=== PATIENT | male | born 1990 | race Caucasian/White ===

== ENCOUNTER 2019-12-12 11:33 | Emergency (ER) | payer OTHER, SELFPAY ==
[2019-12-12 11:46] VITALS: BP 108/66; PULSE 72; RESP 18; TEMP 36.7; O2SAT 99
--- NOTE | 2019-12-12 12:05 | ED.URI ---
HPI - URI/Sore Throat General Chief Complaint: Upper Respiratory Infection Stated Complaint: body aches/warren/chillls/cough Time Seen by Provider: 12/12/19 12:05 Source: patient and RN notes reviewed History of Present Illness HPI Narrative: Patient is a 29-year-old male that presents the urgent care with complaints of body aches, headache, chills, cough. Patient states that his girlfriend was diagnosed with influenza last Monday. Patient states his symptoms started on Monday and he has been using ibuprofen. States that he has had chills and sweats but denies known fever. No other acute complaints. No acute distress noted. Patient read the plan of care. Related Data Home Medications Medication Instructions Recorded Confirmed No Home Medications 12/12/19 12/12/19 Allergies Allergy/AdvReac Type Severity Reaction Status Date / Time No Known Allergies Allergy Unverified 12/12/19 11:45 Review of Systems Review of Systems: Narrative: CONSTITUTIONAL: reports of chills, sweats and fatigue EYES: Denies visual changes, redness, or discharge. ENT: Denies rhinorrhea, congestion, sore throat, or otalgia. CARDIOVASCULAR: Denies chest pain, palpitations, or edema. RESPIRATORY: Reports of nonproductive cough without dyspnea or wheezing GASTROINTESTINAL: Denies abdominal pain, nausea, vomiting, or diarrhea. GENITOURINARY: Denies dysuria or hematuria. SKIN: Denies rash or itching. MUSCULOSKELETAL: Denies back pain, joint pain; reports of body aches NEUROLOGIC: D reports of intermittent headaches All other systems reviewed are negative, except as documented in HPI. PMFSH Social History Social History Smoking status: Never smoker Alcohol intake: never Comments At the time of my signature, I reviewed and agree with the nursing past medical, surgical, social, and family history. There is no relevant family history pertinent to the patient complaint. Exam Narrative: Exam Narrative: GENERAL: This is a well-nourished, well-developed patient, appears slightly fatigued HEAD: normocephalic, atraumatic. EYES: PERRL. Sclera clear/white. Vision is grossly intact. EARS: External ears normal, auditory canals clear and without drainage, TMs normal without perforation. Hearing grossly intact. NOSE: External nose normal with no obvious nasal discharge, nares without redness, clear rhinorrhea. THROAT: Mucous membranes moist, posterior pharynx clear. Moderate postnasal drainage NECK: Neck supple CARDIOVASCULAR: Regular rate and rhythm without murmurs, gallops, or rubs. RESPIRATORY: Clear to auscultation. Breath sounds equal bilaterally. No wheezes, rales, or rhonchi. SKIN: warm, intact with no suspicious lesions or rash, good texture and turgor. NEURO: awake, alert, and oriented to person, place and time. There were no obvious focal neurologic abnormalities. EXTREMITIES: No clubbing, cyanosis, or edema. Course Vital Signs Vital signs: Vital Signs Temperature 98.1 F 12/12/19 11:46 Pulse Rate 72 12/12/19 11:46 Respiratory Rate 18 12/12/19 11:46 Blood Pressure 108/66 12/12/19 11:46 Pulse Oximetry 99 12/12/19 11:46 Temperature 98.1 F 12/12/19 11:46 Pulse Rate 72 12/12/19 11:46 Respiratory Rate 18 12/12/19 11:46 Blood Pressure 108/66 12/12/19 11:46 Pulse Oximetry 99 12/12/19 11:46 Reviewed MDM - URI/Sore Throat MDM Narrative Medical decision making narrative: Reviewed lab results with the patient. He is aware that his flu swab was negative. Advised the patient to treat symptoms with [id number] medication such as Claritin and Flonase for postnasal drainage and symptom relief. Use Tylenol/ibuprofen as needed for headache, body aches, fever. Increase fluids and rest. Use humidifier at night. Follow-up with PCP within 2 to 5 days or for worsening symptoms or failure to improve. Differential Diagnosis Differential diagnosis: Likely upper respir
== END 2019-12-12 12:35 | disposition home or self-care (01) ==
PROVIDERS: Emergency Provider Nurse Practitioner Family; PCP Emergency Medicine
DX: B34.9 Viral infection, unspecified (principal)
CPT/HCPCS: 87804; 99203; G0463

== ENCOUNTER 2023-06-20 12:20 | Emergency (ER) | payer OTHER, SELFPAY ==
[2023-06-20 12:32] VITALS: BP 119/76; PULSE 73; RESP 16; TEMP 36.6; O2SAT 100
--- NOTE | 2023-06-20 12:39 | ED.URI ---
HPI - URI/Sore Throat General Chief Complaint: Upper Respiratory Infection Stated Complaint: Cold symptoms Source: patient and RN notes reviewed History of Present Illness HPI Narrative: 32 yo M presents to urgent care with complaints of congestion, VIRAMONTES, cough, and sore throat since Monday. Pt states he has SOB and chest pain when he coughs. States he had a fever on Monday. Denies any V/D, ear pain, or abdominal pain. Pt has been taking Nyquil at home. Related Data Allergies Allergy/AdvReac Type Severity Reaction Status Date / Time No Known Allergies Allergy Unverified 06/20/23 12:32 Review of Systems Review of Systems: Pertinent positives and pertinent negatives per HPI. [facility]LY [facility] Family History Family History Mother Patient's mother is in good health Father Patient's father is in good health Social History Social History Smoking status: Never smoker Alcohol intake: never Comments At the time of my signature, I reviewed and agree with the nursing past medical, surgical, social, and family history. There is no relevant family history pertinent to the patient complaint. Exam Narrative: GENERAL: This is a well-nourished, well-developed patient, in no apparent distress. HEAD: normocephalic, atraumatic. EYES: Sclera clear/white. Vision is grossly intact. EARS: External ears normal, auditory canals clear and without drainage, TMs normal without perforation. Hearing grossly intact. NOSE: External nose normal with no obvious nasal discharge, nares without redness, no rhinorrhea. THROAT: Mucous membranes moist, posterior pharynx erythremic with postnasal drip . NECK: Neck supple, non-tender without lymphadenopathy, masses or thyromegaly. CARDIOVASCULAR: Regular rate and rhythm without murmurs, gallops, or rubs. RESPIRATORY: Clear to auscultation. Breath sounds equal bilaterally. No wheezes, rales, or rhonchi. SKIN: warm, intact with no suspicious lesions or rash, good texture and turgor. NEURO: awake, alert, and oriented to person, place and time. There were no obvious focal neurologic abnormalities. BACK: Nontender without deformity or crepitus. No flank tenderness. Course Course Level of Care: Express Care Visit Vital Signs Vital signs: Vital Signs Temperature 97.9 F 06/20/23 12:32 Pulse Rate 73 06/20/23 12:32 Respiratory Rate 16 06/20/23 12:32 Blood Pressure 119/76 06/20/23 12:32 Pulse Oximetry 100 06/20/23 12:32 Temperature 97.9 F 06/20/23 12:32 Pulse Rate 73 06/20/23 12:32 Respiratory Rate 16 06/20/23 12:32 Blood Pressure 119/76 06/20/23 12:32 Pulse Oximetry 100 06/20/23 12:32 reviewed MDM - URI/Sore Throat MDM Narrative Medical decision making narrative: After 24 hours on antibiotics throw tooth brush away and start using a new one. Increase your Vitamin C. Do not share drinks. Take Motrin alternating with Tylenol for pain and/or fever alternating every 4 hours. Increase fluids, avoid caffeine. Take a probiotic daily or eat a low sugar yogurt while taking the antibiotic. Follow up with Primary provider if not getting better this week Differential Diagnosis Differential diagnosis: Likely upper respiratory infection, viral infection and pharyngitis Lab Data Attestation: I reviewed the patient's lab results. Labs: Strep Screen Positive Group A Strep *(Reference Range: Negative)* Critical Care Time Critical Care Time Critical Care Time: No Discharge Plan Discharge Clinical Impression: Pharyngitis Qualifiers: Pharyngitis/tonsillitis etiology: streptococcus Qualified Code(s): J02.0 - Streptococcal pharyngitis Patient Disposition: Home, Self-Care Condition: Stable Instructions: Antibiotic Form, Strep Throat (DC) Additional Instructions: After 24 hours on an
== END 2023-06-20 12:59 | disposition home or self-care (01) ==
PROVIDERS: Emergency Provider Nurse Practitioner Family; PCP Emergency Medicine
DX: J02.0 Streptococcal pharyngitis (principal)
CPT/HCPCS: 87880; 99203; G0463

== ENCOUNTER 2024-11-19 14:50 | Emergency (ER) | payer OTHER, SELFPAY ==
[2024-11-19 15:29] VITALS: BP 122/77; PULSE 73; RESP 16; TEMP 36.6; O2SAT 100
--- NOTE | 2024-11-19 15:47 | ED.LOWEXIN ---
HPI - Extremity Injury (Lower) General Chief Complaint: Extremity Injury, Lower Stated Complaint: INFECTED INGROWN TOENAIL Time Seen by Provider: 11/19/24 16:00 Source: patient Mode of arrival: ambulatory Limitations: no limitations History of Present Illness HPI Narrative: Bob is a 33-year-old male patient presenting to the clinic today with complaints of possible left infected ingrown toenail. He reports he stubbed his toe a few days ago and his toe became red and swollen with some yellow discharge. Has been doing Epson salt soaks. No known fever or chills. Related Data Allergies Allergy/AdvReac Type Severity Reaction Status Date / Time No Known Allergies Allergy Unverified 11/19/24 15:29 Review of Systems Review of Systems: Pertinent positives per HPI. Patient denies any fever, chills, rash, headache, visual changes, dizziness, cough, runny nose, sore throat, shortness of breath, chest pain, palpitations, nausea, vomiting, diarrhea, constipation, abdominal pain, or any urinary issues. [facility] Family History Family History Mother Patient's mother is in good health Father Patient's father is in good health Social History Social History Smoking status: Never smoker Alcohol intake: never Comments At the time of my signature, I reviewed and agree with the nursing past medical, surgical, social, and family history. There is no relevant family history pertinent to the patient complaint. Exam Narrative: General: Well-developed, well nourished, in no apparent distress Head: Normocephalic, atraumatic. Cardio: Regular rate and rhythm, s1 and s2 normal, no murmur appreciated. Resp: Clear to auscultation bilaterally, no rhonchi, rales, wheezing or rubs. Integumentary: [place], warm, and dry, ingrown toenail with infection to the right medial great toe-redness and swelling with yellow drainage Course Course Emergency Course: Portions of this record may have been created with voice recognition software. Level of Care: Express Care Visit Vital Signs Vital signs: Vital Signs Temperature 36.6 C 11/19/24 15:29 Pulse Rate 73 11/19/24 15:29 Respiratory Rate 16 11/19/24 15:29 Blood Pressure 122/77 11/19/24 15:29 Pulse Oximetry 100 11/19/24 15:29 Temperature 36.6 C 11/19/24 15:29 Pulse Rate 73 11/19/24 15:29 Respiratory Rate 16 11/19/24 15:29 Blood Pressure 122/77 11/19/24 15:29 Pulse Oximetry 100 11/19/24 15:29 Vital signs reviewed MDM - Extremity Injury (Lower) MDM Narrative Medical decision making narrative: At the time of visit patient is resting comfortably on the exam table. Patient appears to be nontoxic. Plan: I suspect patient has infected ingrown toenail. Prescription for Keflex and mupirocin cream was sent to the pharmacy. Recommend patient see his activated sludge attendant in 3-5 days for ingrown toenail removal. Supportive measures were discussed with the patient and they voiced understanding discharge instructions and agrees to treatment plan. Return precautions reviewed Differential Diagnosis Differential diagnosis: Likely other (Infected ingrown toenail, toe fracture, stubbed toe) Discharge Plan Discharge Clinical Impression: Ingrowing toenail with infection Patient Disposition: Home, Self-Care Condition: Stable Instructions: Antibiotic Form, Ingrown Nail (ED) Additional Instructions: Increase fluids and stay well hydrated Complete Epsom salt soaks 3-4 times per day Apply mupirocin cream to the affected area Take Keflex as prescribed Follow-up with activated sludge attendant in 5-7 days Patient Language: Romansh Prescriptions: New mupirocin [Centany] 2 % ointment 1 applic topical BID 7 Days Qty: 15 0RF cephalexin 500 mg capsule 500 mg PO Q8H 7 Days Qty: 21 0RF Follow-up/Referrals: Mikey Brooks MD [Primary Care Provider] - Time of Disposition: 15:49 Quality NIHSS Nursing Documentation ED NIHSS nursing documentation: reviewed/agree
== END 2024-11-19 16:00 | disposition home or self-care (01) ==
PROVIDERS: Emergency Provider Nurse Practitioner Family; PCP Emergency Medicine
DX: L60.0 Ingrowing nail (principal); L03.031 Cellulitis of right toe
CPT/HCPCS: 99213; G0463

== ENCOUNTER 2024-12-24 17:42 | Emergency (ER) | payer OTHER, SELFPAY ==
--- NOTE | 2024-12-24 17:47 | ED.URI ---
HPI - URI/Sore Throat General Chief Complaint: Upper Respiratory Infection Stated Complaint: flu like symptoms Time Seen by Provider: 12/24/24 17:47 Source: patient Mode of arrival: ambulatory Limitations: no limitations History of Present Illness HPI Narrative: Bob is a 34 year old male patient presenting to the clinic today with c/o nausea, vomiting, diarrhea, headache, dizziness, body aches, chills, and feeling fevers since last night. He reports he has had numerous episodes of vomiting and diarrhea. States he feels dizzy has been trying to drink Gatorade, IV body armor, and water. MD elicited complaint: other (Nausea, vomiting, diarrhea, body aches, chills, fever, headache) Related Data Allergies Allergy/AdvReac Type Severity Reaction Status Date / Time No Known Allergies Allergy Verified 12/24/24 17:56 Review of Systems Review of Systems: Pertinent positives per HPI. Patient denies any fever, chills, rash, headache, visual changes, dizziness, cough, shortness of breath, chest pain, palpitations, nausea, vomiting, diarrhea, constipation, abdominal pain, or any urinary issues. [facility] Family History Family History Mother Patient's mother is in good health Father Patient's father is in good health Social History Social History Smoking status: Never smoker Alcohol intake: never Comments At the time of my signature, I reviewed and agree with the nursing past medical, surgical, social, and family history. There is no relevant family history pertinent to the patient complaint. Exam Narrative: General: Well-developed, well nourished, in no apparent distress Head: Normocephalic, atraumatic Eyes: Pupils equally round and reactive to light bilaterally, EOM intact, sclera and conjunctive clear, no discharge, lids normal Ears: TMs intact and clear, ear canals clear, no drainage, grossly hearing normal. Nose: Nares patent, no discharge, no inflammation, no sinus tenderness. Mouth: Oral pharynx without lesions or masses, good dentition, MMM. Neck: Supple, trachea midline, no enlargement of anterior or posterior cervical nodes, no thyroid masses or goiter palpable. Cardio: Regular rate and rhythm, s1 and s2 normal, no murmur appreciated. Resp: Clear to auscultation bilaterally, no rhonchi, rales, wheezing or rubs Abdomen: Soft, pliable, bowel sounds present in all quadrants, non-tender to palpation, no organomegly, no CVAT tenderness. Course Course Emergency Course: Portions of this record may have been created with voice recognition software. Level of Care: Express Care Visit Vital Signs Vital signs: Vital Signs Temperature 37.1 C 12/24/24 17:55 Pulse Rate 110 H 12/24/24 17:55 Respiratory Rate 16 12/24/24 17:55 Blood Pressure 109/73 12/24/24 17:55 Pulse Oximetry 100 12/24/24 17:55 Temperature 37.1 C 12/24/24 17:55 Pulse Rate 110 H 12/24/24 17:55 Respiratory Rate 16 12/24/24 17:55 Blood Pressure 109/73 12/24/24 17:55 Pulse Oximetry 100 12/24/24 17:55 Vital signs reviewed MDM - URI/Sore Throat MDM Narrative Medical decision making narrative: At the time of visit patient is resting on the exam table. Patient appears to be acutely ill. Labs: Influenza testing was negative. Medications: Zofran 4 mg ODT given in the clinic today. Plan: I suspect patient has influenza like illness/gastroenteritis/dehydration. 4 mg ODT of Zofran was given in the clinic today. Will send in prescription for Zofran and also send in a prescription for some meclizine to see if this helps alleviate some of his symptoms is likely due to dehydration. If medications do not work and patient symptoms get worse recommend going to the emergency room for IV fluids and blood work. Supportive measures were discussed with the patient and they voiced understanding discharge instructions and agrees to treatment plan. Return precautions reviewed Differential Diagnosis Differential diagnosis: Likely upper respiratory infection, otitis media, sinusitis, viral infection, bronchitis, influenza, pharyngitis and other (COVID) Discharge Plan Discharge Clinical Impression: Influenza-like illness, Gastroenteritis, Acute dehydration Patient Disposition: Home, Self-Care Condition: Stable Instructions: Antibiotic Form, Dehydration (ED), Influenza (ED), Gastroenteritis (ED), Viral Syndrome (ED) Additional Instructions: Influenza testing was negative in the clinic today. Take prescription medications only as prescribed-ondansetron for nausea and meclizine for dizziness May take Imodium as needed for diarrhea as long as there is no blood in your stool. Increase fluids and stay well hydrated Tylenol/motrin for pain/fever Flonase and OTC antihistamines as directed Vicks vapor rub to open sinuses Sinus rinses for congestion Cepacol spray, cough drops, throat lozenges, warm tea with honey/lemon, gargle salt water to soothe throat BRAT diet for diarrhea Clear liquids x 24 hours then advance as tolerated for nausea/vomiting Go to the ED if you develop a worsening in your condition- high fever not controlled by Tylenol or Motrin, dehydration, weakness, lethargy, shortness of breath, or chest pain. Follow up with your PCP in 3-5 days if symptoms persist. Patient Language: Divehi Prescriptions: New ondansetron 4 mg tablet,disintegrating 4 mg PO Q6H PRN (Reason: nausea and vomiting) 3 Days Qty: 12 0RF meclizine 25 mg tablet 25 mg PO TID PRN (Reason: dizziness) 7 Days Qty: 21 0RF Follow-up/Referrals: Mikey Brooks MD [Primary Care Provider] - Stand Alone Forms: Work/School Release IP Time of Disposition: 18:09 Quality NIHSS Nursing Documentation ED NIHSS nursing documentation: reviewed/agree
[2024-12-24 17:55] VITALS: BP 109/73; PULSE 110; RESP 16; TEMP 37.1; O2SAT 100
[2024-12-24] MEDS: ONDANSETRON HCL ODT 4 MG TABLET SUBLINGUAL (18:00)
[2024-12-24 18:11] LABS: EDINFLUASCREEN Negative (Negative); EDINFLUBSCREEN Negative (Negative)
== END 2024-12-24 18:14 | disposition home or self-care (01) ==
PROVIDERS: Emergency Provider Nurse Practitioner Family; PCP Emergency Medicine
DX: J11.1 Influenza due to unidentified influenza virus with other respiratory manifestations (principal); K52.9 Noninfective gastroenteritis and colitis, unspecified; E86.0 Dehydration
CPT/HCPCS: 87804; 99213; A9270; G0463

== ENCOUNTER 2025-02-28 18:03 | Emergency (ER) | payer OTHER, SELFPAY | END 2025-02-28 18:40 | disposition home or self-care (01) | PROVIDERS: Emergency Provider Nurse Practitioner Family; PCP Emergency Medicine | DX: S61.411A Laceration without foreign body of right hand, initial encounter (principal); W25.XXXA Contact with sharp glass, initial encounter; Y93.G1 Activity, food preparation and clean up | CPT/HCPCS: 12001; 99212; G0463; J2003 ==